=== PATIENT | female | born 1970 | race Caucasian/White ===

== ENCOUNTER 2021-10-22 02:45 | Outpatient (CLI) | payer BC, SELFPAY ==
[2021-10-22 08:07] LABS: HGB 12.4 g/dL (11.2-15.7); MCH 27.9 pg (27.0-33.0); MCHC 31.8 % (32.0-36.0); MCV 87.6 fL (80-95); MPV 9.4 fL (8.0-11.0); Platelet Count 303 10^3/uL (130-400); RBC 4.45 10^6/uL (3.93-5.22); RDW 13.2 % (11.7-14.6); RDW-SD 42.5 fL; WBC 7.13 10^3/uL (4.4-10.8)
[2021-10-22 08:50] LABS: Anion Gap 7.1 mmol/L (3-11); BUN 14 mg/dL (7-18); CO2 27.9 mmol/L (21.0-32.0); CREATININE 0.8 mg/dL (0.55-1.02); Calcium 8.7 mg/dL (8.5-10.1); Chloride 104 mmol/L (98-107); Glucose 85 mg/dL (74-106); Potassium 4.5 mmol/L (3.5-5.1); Sodium 139 mmol/L (136-145)
[2021-10-22 08:57] LABS: HCG Qual (Serum) Negative
== END 2021-10-22 02:46 | disposition home or self-care (01) ==
LOC: LBO 02:46
PROVIDERS: Visit Provider Obstetrics & Gynecology Gynecology
DX: Z01.818 Encounter for other preprocedural examination (principal)
CPT/HCPCS: 36415; 80048; 85027; 86850; 86900; 86901; 84703

== ENCOUNTER 2021-10-23 10:34 | Outpatient (CLI) | payer BC, SELFPAY ==
[2021-10-23 15:02] LABS: Source Nasal/Nares
[2021-10-23 17:12] LABS: COVID-19 PCR Negative (Negative)
== END 2021-10-23 10:35 | disposition home or self-care (01) ==
PROVIDERS: Visit Provider Obstetrics & Gynecology Gynecology
DX: Z20.822 Contact with and (suspected) exposure to COVID-19 (principal); Z01.818 Encounter for other preprocedural examination
CPT/HCPCS: 87635

== ENCOUNTER 2021-10-24 07:50 | Day surgery (SDC) | payer BC, SELFPAY ==
[2021-10-24 08:00] VITALS: BP 136/80; PULSE 59; RESP 16; TEMP 37; O2SAT 98
[2021-10-24] MEDS: Lactated Ringers 1,000 ML 125 ML IV (08:24)
--- NOTE | 2021-10-24 09:13 | W.ANESPRE ---
General Info Date of Service Date Performed: 10/24/21 Height: 5 ft 3 in Weight: 86.9 kg Body Mass Index (BMI): 33.9 Surgical Procedure: Operation Date: 10/24/21 09:25 Proposed Procedure Side Surgeon p [place] Thermal Endometrial Ablation Siena Enriquez MD Meds Allergies and Home Medications Allergies Allergy/AdvReac Type Severity Reaction Status Date / Time No Known Allergies Allergy Verified 10/24/21 06:59 Home Medication Medication Instructions Recorded cholecalciferol (vitamin D3) 125 125 mcg PO DAILY 09/25/21 mcg (5,000 unit) capsule magnesium oxide 400 mg PO DAILY 09/25/21 sertraline 25 mg tablet 25 mg PO DAILY 09/25/21 Current Visit Medications: Current Medications Generic Name Dose Route Start Last Admin Trade Name Freq PRN Reason Stop Dose Admin Ringer's Solution 1,000 mls @ 125 mls/hr 10/24/21 06:00 10/24/21 08:24 IV 11/22/21 23:59 125 mls/hr INFUSION ASHVIN Administration IV Miscellaneous Supplies 1 each 10/24/21 06:00 Iv Access IV 11/22/21 23:59 DIRECTED ASHVIN Sodium Chloride 0 ml 10/24/21 06:00 Normal Saline Flush 10 Ml Syr IV 11/22/21 23:59 PRN PRN Sodium Chloride 0 ml 10/24/21 06:00 Normal Saline 10 Ml Vial IJ 11/22/21 23:59 DIRECTED PRN Sterile Water 0 ml 10/24/21 06:00 Water,Injection,Sterile 10 Ml Vial IJ 11/22/21 23:59 DIRECTED PRN PFSH Active Problems Active Problems: Problem Status Onset Code Preop examination Z01.818 Migraine G43.909 Elevated cholesterol E78.00 Depression with anxiety F41.8 Abnormal uterine bleeding N93.9 Uterine polyp N84.0 Surgical History Surgical History Hx of section x4. Tobacco Smoking/Tobacco Use Status: Former Tobacco Use Alcohol Alcohol Intake: never Substance Use Substance use: Never Substance use type: does not use Prental History History 5 Para 4 Hx # Term Pregnancies Multiple births Hx # Pregnancies Ectopic pregnancies AB induced Hx Number of Living Children AB spontaneous 1 Vital Signs and Lab Results Vital Signs Most Recent Vital Signs in EMR: Most Recent Vital Signs Temp Pulse Resp BP Pulse Ox 37 C 59 L 16 136/80 98 10/24/21 08:00 10/24/21 08:00 10/24/21 08:00 10/24/21 08:00 10/24/21 08:00 Point of Care Results Point of Care Results: POC- Test(urine) Negative 10/24/21 08:40 Lab Results Blood Type / Crossmatch: Patient ABO/Rh A Positive 10/22/21 Antibody Screen NEGATIVE 10/22/21 Complete Blood Count: White Blood Count 7.13 10^3/uL (4.4-10.8) 10/22/21 07:57 10/22/21 Red Blood Count 4.45 10^6/uL (3.93-5.22) 10/22/21 07:57 10/22/21 Hemoglobin 12.4 g/dL (11.2-15.7) 10/22/21 07:57 10/22/21 Hematocrit 39.0 % (36.0-46.0) 10/22/21 07:57 10/22/21 Platelet Count 303 10^3/uL (130-400) 10/22/21 07:57 10/22/21 Complete Metabolic Panel: Sodium Level 139 mmol/L (136-145) 10/22/21 07:57 10/22/21 Potassium Level 4.5 mmol/L (3.5-5.1) 10/22/21 07:57 10/22/21 Chloride Level 104 mmol/L (98-107) 10/22/21 07:57 10/22/21 Carbon Dioxide Level 27.9 mmol/L (21.0-32.0) 10/22/21 07:57 10/22/21 Blood Urea Nitrogen 14 mg/dL (7-18) 10/22/21 07:57 10/22/21 Creatinine 0.8 mg/dL (0.55-1.02) 10/22/21 07:57 10/22/21 Estimated GFR/1.73 m2 >= 60.00 (mL/min/1.73m2) 10/22/21 07:57 10/22/21 Calcium Level 8.7 mg/dL (8.5-10.1) 10/22/21 07:57 10/22/21 Glucose Level 85 mg/dL (74-106) 10/22/21 07:57 10/22/21 Liver Function Panel: No Data to Display Coagulation Panel: No Data to Display Cardiac Panel: No Data to Display Arterial Blood Gas: No Data to Display Venous Blood Gas: No Data to Display Pancreas Panel: No Data to Display Thyroid Panel: No Data to Display Infectious Disease: Coronavirus (COVID-19)(PCR) Negative (Negative) 10/23/21 10:14 10/23/21 Coronavirus 2019 Source Nasal/Nares 10/23/21 10:14 10/23/21 Blood Cultures: No Data to Display Toxicology Panel: No Data to Display Panel: Serum HCG, Qualitative Negative 10/22/21 07:57 10/22/21 Anesthesia Assessment and Plan Anesthesia History Personal History: No History of Anesthesia Complications Family History: No Family History of Anesthesia Complications Exercise Tolerance Exercise Tolerance: Metabolic Equivalents>4 Pertinent Negatives Pertinent Negatives: No Symptoms of GERD, No Major Cardiovascular Symptoms or Complaints, No Major Pulmonary Symptoms or Complaints and No History of CVA/TIA Cardiac & Pulmonary Exam Cardiac Exam: Normal S1/S2 Heart Sounds Pulmonary Exam: Clear Bilateral Breath Sounds Implantable Cardiac Device Does patient have a Pacemaker or an ICD?: No Airway Exam Known Difficult Airway: No Mallampati Class: 3 Mouth Opening: Normal (> 3cm) Thyromental Distance: Greater than 3 cm Neck Range of Motion: Full ROM Neck Circumference: Normal Teeth Condition: Normal Dentition ASA Classification ASA Score: ASA 2 Emergency Case?: No NPO Status NPO Status: NPO Clears >2 hours, Solids >8 hours Status Status: Negative HCG Anesthesia Plan Resuscitation Status: Full Code Anesthesia Technique: General Anesthesia Airway Planned: Natural Airway Monitors Used: Standard Monitors
[2021-10-24 09:17] VITALS: BMI 33.9
[2021-10-24] MEDS: Bupivacaine 0.25% Pres-Free 30 ML VIAL (10:10)
[2021-10-24 10:30] VITALS: BP 112/56; PULSE 70; RESP 16; TEMP 36.4; O2SAT 97
--- NOTE | 2021-10-24 10:34 | W.PM.DSUDISC ---
Discharge Plan Disposition Patient Disposition: HOME Condition: Good Discharge Details Reason For Visit: Hydrothermal endometrial ablation Attending Provider: Siena Enriquez Primary Care Provider: Heriberto Cano Home Meds and New Rx's Prescriptions: No Action magnesium oxide 400 mg magnesium capsule 400 mg PO DAILY 0RF cholecalciferol (vitamin D3) 125 mcg (5,000 unit) capsule 125 mcg PO DAILY 0RF sertraline 25 mg tablet 25 mg PO DAILY 0RF Discharge Instructions Additional Instructions: 1. You will have watery vaginal discharge for the next 4 weeks. You may use a pad but not a tampon during that time. 2. He may take ibuprofen and Tylenol for pain. If your pain is not relieved notify Dr. Enriquez by calling [phone] and having her paged. 3. Keep your scheduled postop appointment. If you are doing well you can cancel the in person appointment and make a telehealth visit with Dr. Enriquez. Stand Alone Forms: [facility] Post Gynecology Surgery Activity:: Activity as Tolerated Diet:: As Tolerated Discharge Orders Discharge Orders: Discharge Order (Routine); Ordered 10/24/21 Ordered By: Siena Enriquez
--- NOTE | 2021-10-24 10:38 | W.PM.OP ---
Date of service: 10/24/21 Time of Service: 10:38 Operative Note Operative Note DATE OF PROCEDURE: 10/24/21 PRE-OP DIAGNOSIS: Abnormal uterine bleeding PROCEDURE: Hydrothermal endometrial ablation SURGEON: Siena Enriquez ANESTHESIA TYPE: MAC Refer to Anesthesia Record ESTIMATED BLOOD LOSS: 0 PATHOLOGY: none sent COMPLICATIONS: None Patient was transported to: same day Patient's condition: stable Implants: None Indications: Pt is a 51-year-old female was initially seen at the request of Reina Vanegas MD on 09/26/21 for abnormal uterine bleeding. Pt reported heavy menses lasting longer than her usual 10days. She reported? passage of clots and bleeding that saturated her clothing and interfered with her ADLs. Discussion with the patient regarding treatment options she decided upon a endometrial ablation. Findings: Small uterine cavity. No intracavitary filling defects Procedure Description: Patient was taken to the operating room where she was placed in the dorsal supine position and MAC was administered without difficulty. She was then placed in the dorsolithotomy position in yellowfin stirrups and prepped and draped in the usual sterile fashion. SCDs were in place. No antibiotics were required. After a surgical timeout was performed a bivalve speculum was placed in the patient's vagina. The anterior lip of the cervix was infiltrated with 1 cc 0.25% bupivacaine and a single-tooth tenaculum was used to grasp the anterior lip of the cervix. A paracervical block was performed with infiltration of 5 cc of 0.25% bupivacaine at the 4 o'clock and 8 o'clock paracervical spaces respectively. Cervix was then sequentially dilated to a maximum of 8 Catherine. A hysteroscope sheath was inserted into the uterine cavity and a cavity assessment was performed with the above noted findings. The tip of the hysteroscope sheath was positioned to allow visualization of the uterine fundus, both tubal ostia in the midportion of the uterine cavity. The sheath was protected from the vaginal rodriguez by the vagina proximity to the speculum. Heated isotonic saline was then administered via gravity into the uterus through the sheath. Once a safety assessment was performed the treatment phase of the procedure began and under direct observation the uterine cavity was treated with heated isotonic saline at 90 ?C for 10 minutes. Intrauterine cool-down phase was performed for 1 minute. The uterine cavity was carefully assessed with hysteroscopy and was noted to have a satisfactory treatment effect and the integrity of the uterine cavity was confirmed. After these findings the hysteroscope was removed as were the instruments removed from the vagina. Tenaculum site was noted to be hemostatic. The speculum was removed and the patient placed in the dorsal supine position. She was successfully awakened from anesthesia and transported to day surgery unit in stable condition. All sponge lap needle counts correct x2
[2021-10-24 11:00] VITALS: BP 122/86; PULSE 54; RESP 16; TEMP 36.4; O2SAT 99
--- NOTE | 2021-10-24 11:24 | W.ANESPOSTOP ---
Postoperative Evaluation Date, Time and Location Date Performed: 10/24/21 Time Performed: 11:00 Patient Location: Day Surgery Unit Vital Signs Most Recent Imported Vital Signs: Most Recent Vital Signs Temp Pulse Resp BP Pulse Ox 36.4 C L 54 L 16 122/86 99 10/24/21 11:00 10/24/21 11:00 10/24/21 11:00 10/24/21 11:00 10/24/21 11:00 Pain Score Most Recent Pain Score: Most Recent Pain Score Pain Level 0 10/24/21 11:00 Assessment Mental Status: Awake (Alert & Oriented to Patient Baseline) Airway and Respiratory Function: Patent airway with normal (patient baseline) respiratory exam Cardiovascular Function: Hemodynamically Stable Hydration Status: Adequately Hydrated Nausea & Vomiting: No Nausea or Vomiting Pain: Pt. Denies Any Pain Peripheral Nerve Block: Patient did not receive a nerve block
== END 2021-10-24 11:30 | disposition home or self-care (01) ==
PROVIDERS: PCP Family Medicine; Visit Provider Obstetrics & Gynecology Gynecology
PROC: (CPT 58353; principal; 2021-10-24 09:15)
DX: N93.9 Abnormal uterine and vaginal bleeding, unspecified (principal); F41.8 Other specified anxiety disorders; E78.00 Pure hypercholesterolemia, unspecified; G43.909 Migraine, unspecified, not intractable, without status migrainosus
CPT/HCPCS: 58563; 81025; J1100; J1885; J2001; J2405